=== PATIENT | male | born 1965 | race Caucasian/White ===

== ENCOUNTER → 2017-01-24 | Outpatient (CLI) | payer OTHER | END | disposition home or self-care (01) | LOC: NUC 08:51 | DX: M47.896 Other spondylosis, lumbar region (principal) | CPT/HCPCS: 78306; A9503 ==

== ENCOUNTER → 2018-05-14 | Outpatient (CLI) | payer OTHER | END | disposition home or self-care (01) | LOC: CDC 08:38 | DX: Z01.810 Encounter for preprocedural cardiovascular examination (principal); M19.012 Primary osteoarthritis, left shoulder; M75.42 Impingement syndrome of left shoulder; M25.512 Pain in left shoulder; I44.4 Left anterior fascicular block; R94.31 Abnormal electrocardiogram [ECG] [EKG] | CPT/HCPCS: 93000 ==